=== PATIENT | male | born 1955 | race Caucasian/White ===

== ENCOUNTER 2020-01-04 08:14 | Outpatient (CLI) | payer OTHER ==
--- NOTE | 2020-01-04 08:50 | ULT ---
Exam: Right upper quadrant ultrasound: HISTORY: Epigastric pain radiating to back for 2 weeks. COMPARISON: None FINDINGS: Liver: Borderline increase in size measuring 17.8 cm in craniocaudal dimensions. The liver also demon strates diffuse increased echogenicity most likely reflective of fatty infiltration. No focal hepatic lesion is seen. Small hypoechoic area is seen adjacent to the gallbladder likely attributable to small focal area of fatty sparing. Gallbladder: No evidence of gallbladder calculi, gallbladder wall thickening, or pericholecystic flui d. Common bile duct: The common duct is normal in caliber measuring 0.3 cm in diameter. Pancreas: Limited visualized portions of the pancreas demonstrate a normal sonographic appearance. Right kidney: Right kidney demonstrates a normal sonographic appearance. The right kidney measures 1 3.1 cm in length. IVC: The visualized IVC demonstrates a normal sonographic appearance. IMPRESSION: 1. Borderline hepatomegaly with fatty infiltration of the liver. 2. No gallbladder calculus is seen, and the common duct is normal in caliber.
== END 2020-01-04 08:15 | disposition home or self-care (01) ==
LOC: SCSULT 08:14
PROVIDERS: ATTEND Family Medicine
DX: K80.80 Other cholelithiasis without obstruction (principal); K76.0 Fatty (change of) liver, not elsewhere classified
CPT/HCPCS: 76705